=== PATIENT | male | born 1975 | race Caucasian/White ===

== ENCOUNTER 2022-10-19 13:16 | Outpatient (CLI) | payer OTHER ==
[2022-10-19 20:58] LABS: BUN - BLOOD UREA NITROGEN 15 mg/dL (6-20); CALCIUM 9.3 mg/dL (8.5-10.3); CARBON DIOXIDE - CO2 28 mmol/L (21-32); CHLORIDE 104 mmol/L (101-111); CHOL/HDL RATIO 3.3 (<5.0); CHOLESTEROL 229 mg/dL; GFR - MDRD 80 (>89); GLUCOSE 109 mg/dL (70-100); HDL CHOLESTEROL 70 mg/dL; LDL CHOLESTEROL,CALCULATED 142 mg/dL; POTASSIUM 3.9 mmol/L (3.5-5.0); SODIUM 141 mmol/L (135-145); TRIGLYCERIDES 86 mg/dL; VLDL CHOLESTEROL 17 mg/dL
[2022-10-19 21:55] LABS: ESTIMATED AVERAGE GLUCOSE 100 mg/dL (70-100); HEMOGLOBIN A1c% 5.1 % (4.27-6.07)
[2022-10-23 01:08] LABS: HIV SCREEN 4TH GENERATION Non Reactive (Non Reactive)
[2022-10-23 04:08] LABS: HCV AB Non Reactive (Non Reactive)
== END 2022-10-19 13:17 | disposition home or self-care (01) ==
LOC: LAB.S 13:16
PROVIDERS: ATTEND Internal Medicine
DX: I10 Essential (primary) hypertension (principal); M25.551 Pain in right hip; Z13.1 Encounter for screening for diabetes mellitus; Z13.220 Encounter for screening for lipoid disorders; Z11.59 Encounter for screening for other viral diseases; Z11.4 Encounter for screening for human immunodeficiency virus [HIV]
CPT/HCPCS: 36415; 80048; 80061; 83036; 83721; 84443; 86803; 87389

== ENCOUNTER 2022-12-21 14:28 | Outpatient (CLI) | payer OTHER ==
--- NOTE | 2022-12-21 16:17 | XRAY Report ---
PROCEDURE: Hip w/Pelvis 2-3V RT INDICATIONS: RIGHT HIP PAIN TECHNIQUE: AP pelvis with lateral view(s) of the right hip(s). COMPARISON: None. FINDINGS: Bones: No fractures or dislocations. Asymmetric moderate right hip joint osteoarthritic changes are seen with joint space narrowing, subchondral sclerosis and prominent marginal osteophyte formation. N o evidence of avascular necrosis of femoral head. No suspicious bony lesions. Soft tissues: No suspicious soft tissue calcifications or masses. IMPRESSION: Asymmetric moderate right hip joint osteoarthritis. No fracture or dislocation. No evidence of avascu lar necrosis. Reviewed by: Jeff Stark MD on 12/21/2022 4:16 PM PDT Approved by: Jeff Stark MD on 12/21/2022 4:16 PM PDT Station ID: [id number]
== END 2022-12-21 14:29 | disposition home or self-care (01) ==
LOC: DI.S 14:28
PROVIDERS: ATTEND Internal Medicine
DX: M16.11 Unilateral primary osteoarthritis, right hip (principal)

== ENCOUNTER 2022-12-27 09:39 | Outpatient (CLI) | payer OTHER ==
--- NOTE | 2022-12-27 10:16 | Sleep Patient Instructions ---
Sleep Center Visit Summary - Patient Visit Information Reason for Visit: Initial consult for evaluation of sleep disordered breathing and other sleep issues. - Patient Instructions Instructions Attached: Sleep Study Home Monitor Additional Instructions: You will be completing a sleep study, either an in-lab polysomnography (PSG) or home sleep study (HST). You will follow-up in the sleep care office after the sleep study is completed to hear the results and talk about therapy, if needed. You will be called by our office staff to schedule this appointment, but you may contact us with any questions. - Clinic Information Contact: [facility] [address] [place] [address] [email or web address] T: [phone]
--- NOTE | 2022-12-27 10:20 | SLEEP CARE CONSULTATION ---
Information from patient questionnaire entered by Sunitha Benavides. I have reviewed and concur with the information entered by Sunitha Benavides. This document represents the service I personally performed and the decisions made by me, Sita Buchanan ARNP. History of Present Illness Service Date and Time: 12/27/2022 0939 Reason for Visit: New patient Chief Complaint: reports: Insomnia, Unrefreshed sleep, Snoring, Excessive daytime sleepiness, Observed pauses in breathing, Fatigue, Frequent awakenings at night Date of Onset: YRS Usual bedtime: 9-10PM Snores at night: Yes Observed to quit breathing while asleep: Yes Sleeps alone due to snoring: No Number of times waking at night: 4+ Reasons for waking at night: reports: Choking, Snoring (only at initally falling asleep), Gasping for air, Pain, Other (UNKNOWN) Toss, Turn, or Twitch while sleeping: Yes Recalls having dreams: No Usually gets out of bed at: 6-7AM Feels refreshed in the morning: No Morning headache: No Sleepy or fatigued during the day: Yes Ever fallen asleep while driving: No Takes day naps: No Prior sleep studies: Yes Additional HPI information: I had the pleasure of seeing KANDY TAYLOR today regarding the possibility of him having a sleep disorder. His current complaints are excessive daytime sleepiness, fatigue, frequent night awakenings, observed pauses in breathing, snoring and unrefreshed sleep. He did a sleep study in [id number] and then he had a laser surgery on his sinuses. His sleep provider retired and moved to [place] soon after the first surgery and the other treatments planned were not done. He is returning for further evaluation since he saw a primary provider and his blood pressure is higher than it should be normally. He states he has pain in his hip from nerves being pinched and they are planning a surgery to correct problem. Nothing is scheduled yet. The pain in his hip is interrupting the quality of sleep. He states initially after first sinus surgery he slept better but since then his sleep has progressively worsened. He is able to get to sleep at beginning of night but cannot stay asleep between issues with apneas and pain. He cannot remember the last time he had a dream. He is not waking up refreshed and is tired throughout the day. - Parasomnia Symptoms Ever been unable to move upon waking from sleep: Yes (just a few times in his life) Walks in sleep: Yes (nothing recent) Talks in sleep: Yes (talked to in past) Ever acted out dreams in sleep: Yes (has walked around; adjusted stuff on wall) Ever felt weak in the knees when startled or emotional: No Bothered by creepy, crawly, restless sensations in legs: Yes (has RLS as well as current pain) Problems with memory or concentration: Yes (horrible short term memory; concentration) Subjective Initial [place] Sleepiness Scale score: 10 (12/18/22) Past Medical History Past Medical History: reports: Hypertension, Arthritis (osteoarthritis in right hip) Social History 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 Patient is and lives in [place]. Have you smoked in the past 12 months: No Alcohol use: Yes Alcohol amount and frequency: 1-2 3-4 DAYS A WEEK Caffeine use: Yes Caffeine amount and frequency: 1-2 5 DAYS A WEEK Family History Family history of sleep disordered breathing: No Allergies and Home Medications Known drug allergies: No Drug allergies reviewed: Yes Home medication list reviewed: Yes Allergy and home medication list: Medications: Gabapentin 100 mg, 1-2 tabs 1-3 times a day Chlorthalidone 25 mg daily Losartan 100 mg daily Review of Systems Weight loss over past 5 years: 40 in the last year Cardiovascular: reports: high blood pressure Gastrointestinal: denies: heartburn Neurological: denies: headaches Psychiatric: denies: anxiety, depression Ear/Nose/Throat: denies: tonsillectomy Musculoskeletal: reports: joint pain Immunologic: reports: allergies to food or environment Physical Exam Vital signs obtained and entered by: SUNITHA Giordano MA Blood Pressure: 126/72 (LEFT ARM) Cuff size: regular Heart Rate: 79 O2 Saturation: 99 Height: 5 ft 11 in Weight: 186 lb Body Mass Index: 25.9 BMI Classification: Overweight Neck circumference: 16.75 Mouth and throat: narrow oropharynx Soft palate: long Hard palate: normal Uvula: normal Uvula visualization: 25% Mallampati Class III Tonsils: small Neck: normal w/o lymphadenopathy or thyromegaly Heart: regular rate and rhythm Lungs: clear bilaterally Impression and Plan 1. Suspected Obstructive Sleep Apnea-Hypopnea Syndrome, as previously diagnosed and as suggested by a history of loud and irregular snoring, observed cessation of breath while asleep, gasping or choking in sleep, frequent awakening during the night, unrefreshed sleep, cognitive impairment, and excessive daytime sleepiness. Narrow oropharynx and obesity are common predisposing factors for obstructive sleep apnea-hypopnea syndrome. I recommend proceeding to polysomnography to confirm the diagnosis and to assess severity. If the patient has significant sleep disordered breathing, a manual CPAP titration study will also be performed to find the optimal treatment pressure. I informed the patient of what the sleep studies involve and after some discussion, obtained agreement to proceed. The pathophysiology of obstructive sleep apnea-hypopnea syndrome was discussed with the patient and health risks of cardiovascular and cerebrovascular disease if not treated. Risks of drowsy driving discussed in detail and patient advised to avoid long distance driving and to kiln puller at the first sign of drowsiness. Patient agreed to plan. * Schedule polysomnography +- manual CPAP titration study and return in 1-2 weeks after the study to discuss result and initiate therapy. * Avoid long distance driving or driving when feeling sleepy. * Avoid alcohol, sedative and muscle relaxant around bedtime. * Attempt to lose weight. * Review instructions provided by trained office staff on how to prepare for the sleep study. * Return for follow-up after sleep study completed. Counseling Topics: Weight loss health impact Visit Type: In Office Time Spent with Patient (minutes): 36 Provider Statement: I spent 100% of the Face to Face Visit with the patient with greater than 50% spent counseling the patient and coordination of care.
[2022-12-27 10:22] VITALS: BP 126/72
== END 2022-12-27 09:40 | disposition home or self-care (01) ==
LOC: SC 09:39
PROVIDERS: ATTEND Nurse Practitioner Family
DX: G47.33 Obstructive sleep apnea (adult) (pediatric) (principal); E66.3 Overweight; Z68.25 Body mass index [BMI] 25.0-25.9, adult
CPT/HCPCS: 99203; 99212

== ENCOUNTER 2023-01-23 11:28 | Outpatient (CLI) | payer OTHER ==
[2023-01-23 15:15] LABS: CALCIUM 9.7 mg/dL (8.5-10.3); CREATININE 1.1 mg/dL (0.6-1.3); POTASSIUM 4.1 mmol/L (3.5-4.5)
== END 2023-01-23 11:29 | disposition home or self-care (01) ==
LOC: LAB.S 11:28
PROVIDERS: ATTEND Internal Medicine
DX: I10 Essential (primary) hypertension (principal)
CPT/HCPCS: 36415; 80048

== ENCOUNTER 2023-02-04 12:28 | Outpatient (CLI) | payer OTHER | END 2023-02-04 12:29 | disposition home or self-care (01) | LOC: SC 12:28 | PROVIDERS: ATTEND Nurse Practitioner Family | DX: G47.33 Obstructive sleep apnea (adult) (pediatric) (principal); R09.02 Hypoxemia | CPT/HCPCS: 95806 ==

== ENCOUNTER 2023-02-07 15:06 | Outpatient (CLI) | payer OTHER ==
--- NOTE | 2023-02-07 13:54 | SLEEP CARE CONSULTATION ---
Information from patient questionnaire entered by Sunitha Benavides. I have reviewed and concur with the information entered by Sunitha Benavides. This document represents the service I personally performed and the decisions made by me, Sita Buchanan ARNP. History of Present Illness Service Date and Time: 02/07/2023 1340 Initial [place] Sleepiness Scale score: 10 (12/18/22) Current [place] Sleepiness Scale score: 9 (02/07/23) Additional HPI information: KANDY TAYLOR returns via video telehealth visit for follow up and results of the recently performed home sleep study. His sleep study showed mild obstructive sleep apnea with an average AHI of 8.1 and [place] oxygen saturation of 84%. I explained the pathophysiology behind obstructive sleep apnea. We then spent quite a bit of time discussing different treatment options. For mild ob structive sleep apnea, surgery and oral appliance are alternatives to nasal CPAP therapy but in moderate or severe cases, nasal CPAP is the most effective and reliable treatment. Because apnea is primarily in supine position, then positional management therapy could be effective. Methods discussed such as positioning with pillows, using a T-shirt with tennis balls in the back or commercial products that have a pillow format on back to prevent supine sleep. I reviewed the impact of weight changes on sleep apnea and strongly recommended losing weight. After some discussion, the patient opted to go with the nasal CPAP therapy. Nasal autoCPAP set at 4-15 cmH20 will be ordered with rationale explained. A manual titration study will be ordered if unable to find optimal pressure with office adjustments. I explained how CPAP machine works and what to expect when using the machine. Using CPAP every night in order to get used to it was emphasized. Patient advised to put CPAP mask on before getting into bed so as not to fall asleep without CPAP. To assist acclimation to CPAP use, it could also be used for a short time during day while reading or watching TV. The patient was instructed to call the CPAP supplier to discuss any mechanical problem that may occur. If the mask given is uncomfortable or is difficult to keep on through the night even with adjustment, contact the CPAP supplier as many will replace with another mask style if notified before 30 days. If snoring or perceives is not getting enough air or too much air from the machine, notify this office. Patient counseled not drink alcohol less than 4 hours before bedtime as it can increase snoring and apnea. Patient was cautioned about risks of drowsy driving until sleepiness symptoms resolve. Patient denies drowsy driving. Sleep Study - Results Type of Sleep Study: Home sleep study (COMPLETED ) Prior sleep studies: Yes Polysomnography/Home Sleep Study results: Physician Impression: The quality of the study is good. The length of the study is adequate (> 240 minutes). Please also see the tabulated and graphic data. 1. Obstructive Sleep Apnea-Hypopnea (ICD-10 G47.33), mild, with an AHI of 8.1/hr and [place] SaO2 of 84%. During the study, the patient had 48 apneas (48 obstructive, 0 central, 0 mixed) and 15 hypopneas. The longest episode lasted 89.5 seconds. The respiratory events occurred almost exclusively during supine sleep (supine AHI was 14.7 and non-supine, 2.39). 2. Hypoxemia (ICD-10 R09.02), mild, with the lowest oxygen saturation of 84 % and 3.2 minutes with SaO2 under 90%. Baseline oxygen saturation was normal (Average oxygen saturation was 95%). Allergies and Home Medications Known drug allergies: No Drug allergies reviewed: Yes Home medication list reviewed: Yes (no changes) Allergy and home medication list: Allergies No Known Drug Allergies Allergy (Verified 02/07/23 08:29) Review of Systems Review of systems same as previous: Yes (no changes) Physical Exam Vital signs obtained and entered by: SUNITHA Giordano MA Blood Pressure: 107/72 (PER PT) Height: 5 ft 11 in (PER PT) Weight: 188 lb (PER PT) Body Mass Index: 26.2 BMI Classification: Overweight Impression and Plan 1. Obstructive Sleep Apnea-Hypopnea Syndrome, mild, with lowest oxygen saturation of 84%. Obviously this is the cause of the patients symptoms of unrefreshed sleep, and excessive daytime sleepiness. Positive pressure therapy could benefit hypertension. As mentioned above, the patient will be started on nasal autoCPAP therapy with pressure set at 4-15 cmH2O. Compliance guidelines also reviewed. A copy of compliance guidelines will be given for reference at check out. Because the apnea is more severe supine, I instructed to avoid sleeping supine using pillow positioning until able to start CPAP use. 2. Hypoxemia, mild, with a [place] oxygen saturation of 84% and 3.2 minutes spent under 90%. His baseline oxygen saturation was normal with an average oxygen saturation of 95%. * Nasal auto CPAP therapy, pressure at 4-15 cm H2O. * Attempt to lose weight. * Avoid alcohol consumption near bedtime. * Avoid supine sleep until using CPAP. * The patient is again cautioned about driving until sleepiness completely resolves. * Return one month after CPAP obtained. I will assess response to therapy and compliance at that time. Counseling Topics: Sleeping position Visit Type: Telehealth Video Video Type: Shanice Patient Location: Home Location of Provider: Office Patient agrees and consents to this telehealth visit type: Yes Patient agrees to have their insurance billed: Yes Time Spent with Patient (minutes): 20 Provider Statement: I spent 100% of the Telehealth Video Call with the patient with greater than 50% spent counseling the patient and coordination of care.
[2023-02-07 13:56] VITALS: BP 107/72
== END 2023-02-07 15:07 | disposition home or self-care (01) ==
LOC: SC 15:06
PROVIDERS: ATTEND Nurse Practitioner Family
DX: G47.33 Obstructive sleep apnea (adult) (pediatric) (principal); R09.02 Hypoxemia; E66.3 Overweight; Z68.26 Body mass index [BMI] 26.0-26.9, adult